=== PATIENT | male | born 2000 | race Caucasian/White ===

== ENCOUNTER 2021-02-04 08:12 | Day surgery (SDC) | payer BC, MEDICAID ==
[~2021-02-04] VITALS: Ht 177.8 cm; Wt 85.3 kg
[~2021-02-04 08:12] MED LIST: NO HOME MEDS; albuterol 2.5 MG/3 ML nebule NEB ONE; ceFAZolin 2gm in dextrose, iso 50 ML IV ONE; famotidine 20mg tablet PO ONE; ringers solution, lacted 1,000 ML IV SCH
[2021-02-04 09:00] VITALS: BP 126/76
[2021-02-04] MEDS ORDERED: LIDOcaine 0.5% (5mg/ml) 50ml vial ONE (09:53)
[2021-02-04] MEDS ORDERED: fentaNYL/PF 50MCG/1 ML 2ML syringe ONE (10:57)
[2021-02-04] MEDS ORDERED: MIDAZolam 1 MG/ML 5ML VIAL ONE (10:57)
[2021-02-04] MEDS ORDERED: BUPIVAcaine/PF 2.5mg/ml (0.25%) 10ml vial ONE (10:59)
[2021-02-04] MEDS ORDERED: propofol inj 20 ML IV ONE (11:15)
[2021-02-04 11:55] VITALS: BP 122/61
--- NOTE | 2021-02-04 11:55 | NUR ---
Received from OR via , accompanied by Anesthesiologist DR WORRELL and report given by Anesthesiolgist. AWAKE AND FRANK PAIN. VITALS STABLE. DRESSING DI. FINGERS WARM AND PINK.
[2021-02-04] MEDS ORDERED: meperidine/PF 25mg/ml syringe IV PRN ×3 (12:00)
[2021-02-04] MEDS ORDERED: ondansetron/PF 4mg/2ml inj IV PRN (12:00)
[2021-02-04] MEDS ORDERED: proCHLORperazine 10 MG/2 ml inj IV PRN (12:00)
[2021-02-04] MEDS ORDERED: morphine 2 MG/ML inj. syringe IV PRN (12:00)
[2021-02-04] MEDS ORDERED: morphine 4 MG/ML inj SYRINge IV PRN (12:00)
[2021-02-04] MEDS ORDERED: ringers solution, lacted 1,000 ML IV SCH (12:00)
[2021-02-04 12:05] VITALS: BP 118/60
[2021-02-04 12:15] VITALS: BP 124/73
--- NOTE | 2021-02-04 12:25 | NUR ---
AWAKE AND ORIENTED. VITALS STABLE. DRESSING DI. FRANK PAIN. HOME WITH HIS MOM AT THIS TIME.
== END 2021-02-04 12:25 | disposition home or self-care (01) ==
LOC: PAS 08:12
PROVIDERS: ATTEND Orthopaedic Surgery Hand Surgery
DX: S66.127A Laceration of flexor muscle, fascia and tendon of left little finger at wrist and hand level, initial encounter (principal); F17.210 Nicotine dependence, cigarettes, uncomplicated; Z20.822 Contact with and (suspected) exposure to COVID-19; Z98.890 Other specified postprocedural states; Z79.899 Other long term (current) drug therapy; Z72.89 Other problems related to lifestyle; W26.0XXA Contact with knife, initial encounter; Y93.89 Activity, other specified; Y92.89 Other specified places as the place of occurrence of the external cause; Y99.8 Other external cause status
CPT/HCPCS: 26356; 36415; 82948; 87426; J2001; J2250; J2704; J3010; J3490; A4215; A4618; A7000; J7120